=== PATIENT | female | born 1960 | race Caucasian/White ===

== ENCOUNTER 2023-08-05 20:00 | Outpatient (CLI) | payer MEDICAID, SELFPAY | END 2023-08-05 20:01 | disposition home or self-care (01) | LOC: SLEEP 08-06 04:19 | PROVIDERS: PCP Family Medicine Adult Medicine; Visit Provider Anesthesiology Pain Medicine | DX: G47.33 Obstructive sleep apnea (adult) (pediatric) (principal); G47.36 Sleep related hypoventilation in conditions classified elsewhere; G47.10 Hypersomnia, unspecified | CPT/HCPCS: 95810 ==

== ENCOUNTER → 2023-09-18 10:36 | Outpatient (BNVA) | payer MEDICAID, SELFPAY | PROVIDERS: PCP Family Medicine Adult Medicine; Visit Provider Family Medicine Adult Medicine | DX: I10 Essential (primary) hypertension (principal); E78.5 Hyperlipidemia, unspecified; R73.03 Prediabetes; E66.01 Morbid (severe) obesity due to excess calories; G47.33 Obstructive sleep apnea (adult) (pediatric); G47.34 Idiopathic sleep related nonobstructive alveolar hypoventilation; F41.9 Anxiety disorder, unspecified; F32.A Depression, unspecified; R25.9 Unspecified abnormal involuntary movements | CPT/HCPCS: 80053; 83036; 84443; 85025 ==

== ENCOUNTER → 2024-12-31 15:00 | Outpatient (BNVA) | payer MEDICAID, SELFPAY | PROVIDERS: PCP Family Medicine; Visit Provider Family Medicine | DX: I10 Essential (primary) hypertension (principal) | CPT/HCPCS: 80053; 80061; 84443; 85025 ==

== ENCOUNTER 2025-01-14 10:28 | Outpatient (CLI) | payer MEDICAID, SELFPAY | END 2025-01-14 10:29 | disposition home or self-care (01) | PROVIDERS: PCP Family Medicine; Visit Provider Family Medicine | DX: Z12.31 Encounter for screening mammogram for malignant neoplasm of breast (principal) | CPT/HCPCS: 77063; 77067 ==

== ENCOUNTER → 2025-01-24 10:04 | Outpatient (BNVA) | payer MEDICAID, SELFPAY | PROVIDERS: PCP Family Medicine; Visit Provider Student in an Organized Health Care Education/Training Program | DX: Z12.11 Encounter for screening for malignant neoplasm of colon (principal) | CPT/HCPCS: 99024; 99204 ==

== ENCOUNTER 2025-02-22 08:33 | Day surgery (SDC) | payer MEDICAID, SELFPAY ==
[2025-02-22 08:51] VITALS: BP 149/87; PULSE 80; RESP 18; TEMP 36.6; O2SAT 93; BMI 44.2
--- NOTE | 2025-02-22 09:47 | ANES.PREANE2 ---
Pre-Anesthetic Assessment Height/Weight: Height 1.57 m Weight 109.769 kg Temp Pulse Resp BP Pulse Ox O2 Del Method 97.8 F 80 18 149/87 93 Room Air 02/22/25 08:51 02/22/25 08:51 02/22/25 08:51 02/22/25 08:51 02/22/25 08:51 02/22/25 08:51 Operation Date: 02/22/25 10:00 Proposed Procedures p Colonoscopy [id number] G0105 Z12.11(Not Applicable) - Osvaldo Solomon MD Familial anesthetic complications: None Was Beta Abby taken within 24 hours: N/A Was Clonidine taken within 24 hours: N/A Last intake: Intake Last Liquid Date 02/21/25 Last Liquid Time 23:00 Last Solid Date 02/20/25 Last Solid Time 18:00 Social No alcohol and No tobacco Exam alert, oriented x 3, clear to auscultation bilaterally and regular rate & rhythm Airway Mallampati: Class II Dentition: other (missing) CV/HEM Hypertension Chronic Renal Insufficiency GI Gastroesophageal Reflux Disease Metabolic Morbid Obesity Neuropsych parkinsons Anesthetic Plan ASA status: 4 Anesthesia: MAC Risk of > 500 ml blood loss (7ml/kg in children): No Medications/Allergies Home Medications ?Medication ?Instructions ?Recorded ?Confirmed ?Last Taken ?Type gabapentin 600 mg tablet 600 mg PO TID neuropathy #90 tabs 08/31/24 02/22/25 02/21/25 Rx Auto CPAP and supplies #1 ea 12/31/24 02/22/25 02/21/25 Rx bupropion HCl 150 mg 24 hr tablet, 150 mg PO [facility] mental Health #90 12/31/24 02/22/25 02/21/25 Rx extended release tabs calcium 500 mg (as 1 tab PO DAILY #90 tabs 12/31/24 02/22/25 02/21/25 Rx carbonate)-vitamin D3 10 mcg (400 unit) tablet (Oyster Shell Calcium-Vitamin D3) carbidopa 25 mg-levodopa 100 mg 1 tab PO TID parkinson's #270 tabs 12/31/24 02/22/25 02/22/25 08:00 Rx tablet famotidine 40 mg tablet 40 mg PO BID acid reflux #180 tabs 12/31/24 02/22/25 02/21/25 Rx hydroxyzine HCl 25 mg tablet 25 mg PO .COMPLEX anxiety 90 days 12/31/24 02/22/25 02/22/25 08:00 Rx #360 tabs lisinopril 10 mg tablet 10 mg PO DAILY high blood pressure 12/31/24 02/22/25 02/21/25 Rx #90 tabs meloxicam 7.5 mg tablet 7.5 mg PO BID #180 tabs 12/31/24 02/22/25 02/21/25 Rx omega-3 fatty acids 1,000 mg 1,000 mg PO DAILY #90 caps 12/31/24 02/22/25 02/21/25 Rx capsule oxybutynin chloride 15 mg 15 mg PO DAILY urine incontinence 12/31/24 02/22/25 02/21/25 Rx tablet,extended release 24 hr #90 tabs pravastatin 20 mg tablet 20 mg PO DAILY high cholesterol 01/02/25 02/22/25 02/21/25 Rx #90 tabs docusate sodium 100 mg capsule 100 mg PO BID PRN Constipation 02/18/25 02/22/25 1 Month Ago History (Colace) ~01/23/25 hydrocodone 7.5 mg-acetaminophen 1 tab PO Q4H PRN pain 02/18/25 02/22/25 02/22/25 08:00 History 325 mg tablet nystatin-triamcinolone 100,000 1 applic topical DAILY PRN Rash 02/18/25 02/22/25 1 Month Ago History unit/g-0.1 % topical cream ~01/23/25 Allergies Allergy/AdvReac Type Severity Reaction Status Date / Time Sulfa (Sulfonamide Allergy Severe ALGY-Anaphy Verified 02/18/25 08:12 Antibiotics) laxis Current Medications Generic Name Dose Route Start Last Admin Trade Name Freq PRN Reason Stop Dose Admin Sodium Chloride 1,000 mls @ 15 mls/hr 02/22/25 08:35 02/22/25 08:56 Sodium Chloride 0.9% IV 02/23/25 08:34 15 mls/hr .Q24H PRN Administration COLONOSCOPY FLUIDS PFSH Anesthesia Medical History PTSD (post-traumatic stress disorder) Parkinson disease CKD (chronic kidney disease) stage 2, GFR 60-89 ml/min Nocturnal hypoxemia AGUSTIN on CPAP 6-16 cm/H2O recommended, nocturnal hypoxia Severe obesity (BMI >= 40) Degenerative disc disease Osteoarthritis involving multiple joints on both sides of body spinal DDD, multiple joints, [facility] chronic pain Hyperlipidemia Incontinence of urine in female GERD (gastroesophageal reflux disease) HTN (hypertension) with goal to be determined Carpal tunnel syndrome Neuropathy CTS bilaterally and peripheral Anxiety Depression Low plasma dopamine Borderline diabetes Surgical History Hx of hysterectomy Partial - not due to cancer Family History Father Cancer Diabetes Mother No problems noted. Social History Smoking and tobacco/nicotine status: never used tobacco/nicotine Alcohol intake: current Alcohol intake frequency: holidays/special occasions only Alcohol type: wine Substance/Drug Use: former
--- NOTE | 2025-02-22 10:12 | W.PM.OPSUD ---
Surgery/Procedure H&P Update DATE OF PROCEDURE: February 22, 2025 DATE H&P PERFORMED: 01/24/25 H&P UPDATE INFORMATION: I have reviewed H&P completed within last 30 days, I have examined patient prior to procedure and No changes to prior documentation PLANNED PROCEDURE: Operation Date: 02/22/25 10:00 Proposed Procedures p Colonoscopy [id number] G0105 Z12.11(Not Applicable) - Osvaldo Solomon MD
[2025-02-22 10:48] VITALS: BP 99/74; PULSE 84; RESP 16; TEMP 36.3; O2SAT 97
--- NOTE | 2025-02-22 16:04 | ANE.PACU2 ---
Inpatient post-anesthesia follow up: Airway intact: Yes Vital signs: Temperature 97.3 F Pulse Rate 84 Respiratory Rate 16 Blood Pressure 99/74 Pulse Oximetry 97 Oxygen Delivery Me thod Room Air Oxygen Flow Rate Fraction of Inspir ed Oxygen Hydration adequate: Yes Nausea and vomiting: No Pain level: 1 Mental status: Baseline
== END 2025-02-22 11:15 | disposition home or self-care (01) ==
PROVIDERS: PCP Family Medicine; Visit Provider Student in an Organized Health Care Education/Training Program
PROC: 0DJD8ZZ Inspection of Lower Intestinal Tract, Via Natural or Artificial Opening Endoscopic (ICD-10-PCS; CPT 45378; principal; 2025-02-22 10:00)
DX: Z12.11 Encounter for screening for malignant neoplasm of colon (principal); K52.9 Noninfective gastroenteritis and colitis, unspecified; Z80.0 Family history of malignant neoplasm of digestive organs; K21.9 Gastro-esophageal reflux disease without esophagitis; I12.9 Hypertensive chronic kidney disease with stage 1 through stage 4 chronic kidney disease, or unspecified chronic kidney disease; N18.2 Chronic kidney disease, stage 2 (mild); E11.40 Type 2 diabetes mellitus with diabetic neuropathy, unspecified; E78.5 Hyperlipidemia, unspecified; E66.01 Morbid (severe) obesity due to excess calories; G47.33 Obstructive sleep apnea (adult) (pediatric); Z68.41 Body mass index [BMI] 40.0-44.9, adult; G20.A1 Parkinson's disease without dyskinesia, without mention of fluctuations; Z79.899 Other long term (current) drug therapy; Z88.2 Allergy status to sulfonamides
CPT/HCPCS: 45380; 88305; J2250; J2704; J7030

== ENCOUNTER → 2025-03-10 09:14 | Outpatient (BNVA) | payer MEDICAID, SELFPAY | PROVIDERS: PCP Family Medicine; Visit Provider Student in an Organized Health Care Education/Training Program | DX: Z09 Encounter for follow-up examination after completed treatment for conditions other than malignant neoplasm (principal) | CPT/HCPCS: 99213 ==

== ENCOUNTER → 2025-04-01 12:54 | Outpatient (BNVA) | payer MEDICAID, SELFPAY | PROVIDERS: PCP Family Medicine; Visit Provider Family Medicine | DX: N18.2 Chronic kidney disease, stage 2 (mild) (principal) | CPT/HCPCS: 80048 ==